=== PATIENT | male | born 1985 | race Caucasian/White ===

== ENCOUNTER → 2018-06-30 12:52 | Outpatient (CLI) | payer BC, SELFPAY ==
--- NOTE | 2018-06-30 12:59 | RAD_ITS ---
STUDY: X-RAY - SACROILIAC JOINTS REASON FOR EXAM: Male, 33 years old. Degenerative disc disease. TECHNIQUE: 3 view(s) of the sacroiliac joints were obtained. COMPARISON: None. FINDINGS: There is narrowing with early cortical sclerosis of the lateral sacroiliac joints, consistent with degenerative osteoarthritic changes. Normal visualized sacral ala and sacrum. There is no demonstrated osseous destructive process or acute fracture. Normal visualized iliac bones. There is degenerative narrowing of the L5-S1 intervertebral disc height. Normal visualized soft tissue structures. RAD/S-I Jts 3 or More Views IMPRESSION: Degenerative changes at the L5-S1 disc space as well as bilateral sacroiliac joints, as described. Electronically Signed: Andrea Lao MD at 15:14 EST , Service support ,
--- NOTE | 2018-06-30 12:59 | RAD_ITS ---
STUDY: X-RAY - LUMBAR SPINE REASON FOR EXAM: Male, 33 years old. Low back pain. Degenerative disc disease. TECHNIQUE: 5 view(s) of the lumbar spine were obtained. COMPARISON: None FINDINGS: Normal lumbar lordosis. There is no substantial scoliosis. There is slight retrolisthesis of L5 on S1. There is well corticated invagination of the anterior aspect of the inferior L2 vertebral endplate, suggesting benign Schmorl's node. Slight anterior wedging and sclerosis that could reflect old healed fracture noted at the anterior inferior margin of the T12 vertebra. Otherwise, normal lumbar vertebral bodies and endplates. There is L4-5 and L5-S1 degenerative disc disease with disc space narrowing. There is no demonstrated osseous destructive lesion or acute displaced fracture. Normal bilateral facet articulations. The soft tissue structures are unremarkable. RAD/L/S Spine Min 4 Views IMPRESSION: Degenerative changes of the spine, as detailed above. Electronically Signed: Andrea Lao MD at 15:16 EST , Service support ,
== END ==
PROVIDERS: Family Provider Internal Medicine; PCP Internal Medicine; Visit Provider Internal Medicine
DX: M51.36 Other intervertebral disc degeneration, lumbar region (principal)
CPT/HCPCS: 72110; 72202